=== PATIENT | male | born 1945 | race Caucasian/White ===

== ENCOUNTER 2022-04-24 17:16 | Observation (INO) | payer MEDICARE, SELFPAY ==
[2022-04-24] VITALS (14 sets, daily range): BP systolic 125–152; BP diastolic 75–98; PULSE 100–132; RESP 18–32; TEMP 36.6–38.4; O2SAT 92–96; BMI 35.6; BMI 38.4
--- NOTE | 2022-04-24 17:36 | EKG12_ITS ---
Test Reason : Blood Pressure : / mmHG Vent. Rate : 128 BPM Atrial Rate : 128 BPM P-R Int : 120 ms QRS Dur : 118 ms QT Int : 338 ms P-R-T Axes : 031 [id number] 011 degrees QTc Int : 493 ms Sinus tachycardia Low voltage QRS Right bundle branch block Inferior infarct , age undetermined Abnormal ECG Confirmed by YVETTE CASTRO, NOLAN ([id number]), offline editor TAMIKO HYATT ([id number]) on 04/26/2022 10:03:15 AM Referred By: LIYAH Confirmed By:NOLAN CRAWFORD MD
--- NOTE | 2022-04-24 17:49 | EDS_ITS ---
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 He started to feel short of breath overnight and then it became worse today while he was at a car show. He was walking to his car several times but not necessarily doing increased activity. He had no chest pain, nausea, or vomiting. No recent fever or cough. He denies cardiac history. He had a heart cath in August 2021 that reportedly showed 50% blockage in 1 vessel but was otherwise normal. He follows with pulmonology and wears 7 L chronically. He states he does not use inhalers or nebulizer as he does not need these. PFSH <NADEGE Santos Last Filed: 04/24/22 19:29> [facility] Medical History (Updated 04/24/22 @ 20:[address] Dar Villanueva, DO) Angina at rest Diabetes Hernia Idiopathic interstitial fibrosis of lung syndrome Allergy/AdvReac Type Severity Reaction Status Date / Time No Known Allergies Allergy Verified 04/24/22 17:17 Surgical History (Updated 04/24/22 @ 17:24 by Gage Lopez) History of back surgery Social History Smoking Status: Former smoker ROS <NADEGE Santos - Last Filed: 04/24/22 19:29> ROS ED ROS Narrative Constitutional: Negative for fever, chills, malaise. Eyes: Negative for visual change. ENT: Negative for sore throat, ear pain, rhinorrhea. CVS: Negative for palpitations, chest pain, syncope. Respiratory: Positive for shortness of breath. Negative for cough. GI: Negative for abdominal pain, nausea, vomiting, diarrhea, constipation, melena, hematochezia. : Negative for dysuria, hematuria or frequency. Neuro: Negative for headache, motor/sensory dysfunction. Skin: Negative for rash, abscess, or wound. Musc: Negative for joint pain, swelling, trauma. Heme: Negative for easy bruising, bleeding, lymphadenopathy. EXAM <NADEGE Santos Last Filed: 04/24/22 19:29> Physical Exam Narrative Exam Narrative: CONST: Patient sitting in no acute distress on nasal cannula. EYES: Normal inspection. NECK: Normal inspection. No JVD. RESP: Able to speak in full sentences with no respiratory distress, faint bibasilar inspiratory crackles. CVS: Regular rate and rhythm, no murmur, no gallop. ABD: Soft and nontender, no guarding or rebound, nondistended. SKIN: Color normal, no rash, warm, dry, intact. EXTREMITIES: Normal appearance, no pedal edema. NEURO: Oriented x4. PSYCH: Normal affect. Const Vital Signs: 04/24/22 17:17 04/24/22 17:21 04/24/22 17:21 Temperature 98.9 F 97.8 F Temperature Source Temporal Temporal Pulse Rate 127 H 126 H 127 H Respiratory Rate 20 H 24 H 21 H Respiratory Effort Respiratory Depth Respiratory Pattern Blood Pressure 152/98 H 152/98 H 152/98 H Blood Pressure Mean 116 116 116 Pulse Ox 95 96 96 Oxygen Delivery Method Non-Rebreather Non-Rebreather Non-Rebreather Oxygen Flow Rate (L/min) 15 15 04/24/22 17:25 04/24/22 18:17 04/24/22 18:17 Temperature 101.2 F H Temperature Source Oral Pulse Rate 131 H 132 H Respiratory Rate 30 H 30 H Respiratory Effort Short of Breath Respiratory Depth Shallow Respiratory Pattern Tachypnea Blood Pressure 130/79 H 130/79 H Blood Pressure Mean 96 96 Pulse Ox 95 95 Oxygen Delivery Method Nasal Cannula Nasal Cannula Nasal Cannula Oxygen Flow Rate (L/min) 7 7 04/24/22 19:00 04/24/22 20:00 Temperature 101.2 F H 99.1 F Temperature Source Temporal Temporal Pulse Rate 125 H 114 H Respiratory Rate 26 H 18 Respiratory Effort Respiratory Depth Respiratory Pattern Blood Pressure 145/78 H 140/75 H Blood Pressure Mean 100 96 Pulse Ox 92 93 Oxygen Delivery Method Nasal Cannula Nasal Cannula Oxygen Flow Rate (L/min) 7 7 <Dr. Dar Villanueva, DO - Last Filed: 04/24/22 20:24> Physical Exam Const Vital Signs: 04/24/22 17:17 04/24/22 17:21 04/24/22 17:21 Temperature 98.9 F 97.8 F Temperature Source Temporal Temporal Pulse Rate 127 H 126 H 127 H Respiratory Rate 20 H 24 H 21 H Respiratory Effort Respiratory Depth Respiratory Pattern Blood Pressure 152/98 H 152/98 H 152/98 H Blood Pressure Mean 116 116 116 Pulse Ox 95 96 96 Oxygen Delivery Method Non-Rebreather Non-Rebreather Non-Rebreather Oxygen Flow Rate (L/min) 15 15 04/24/22 17:25 04/24/22 18:17 04/24/22 18:17 Temperature 101.2 F H Temperature Source Oral Pulse Rate 131 H 132 H Respiratory Rate 30 H 30 H Respiratory Effort Short of Breath Respiratory Depth Shallow Respiratory Pattern Tachypnea Blood Pressure 130/79 H 130/79 H Blood Pressure Mean 96 96 Pulse Ox 95 95 Oxygen Delivery Method Nasal Cannula Nasal Cannula Nasal Cannula Oxygen Flow Rate (L/min) 7 7 04/24/22 19:00 04/24/22 20:00 Temperature 101.2 F H 99.1 F Temperature Source Temporal Temporal Pulse Rate 125 H 114 H Respiratory Rate 26 H 18 Respiratory Effort Respiratory Depth Respiratory Pattern Blood Pressure 145/78 H 140/75 H Blood Pressure Mean 100 96 Pulse Ox 92 93 Oxygen Delivery Method Nasal Cannula Nasal Cannula Oxygen Flow Rate (L/min) 7 7 [facility] <NADEGE Santos - Last Filed: 04/24/22 19:29> [facility] MDM Narrative Medical decision making narrative: Patient with pulmonary fibrosis on chronic 7L O2 presents with increased shortness of breath. He was brought in on nonrebreather however was placed back on 7 L and is satting around 95%. He is tachycardic in the 130s. He speaking in full sentences in no respiratory distress. Heart is rapid but regular. Lungs have bibasilar inspiratory crackles. There is no lower extremity edema. Labs show white count of 13.1, normal electrolytes, BUN/creatinine of 25/1.51, and BNP 61. There are no previous labs for comparison. EKG is sinus tachycardia with no acute ischemia and troponin is 10. COVID-19 antigen testing was negative. While here he did spike a fever at 101.2F cell he was treated with IV fluids, Tylenol, and blood cultures will be obtained. CXR shows no acute process. With unexplained fever and shortness of breath a PCR COVID-19 and CTA chest will be obtained. Lab Data Attestation: I reviewed the patient's lab results. Labs: Laboratory Results - last 24 hr 04/24/22 04/24/22 04/24/22 17:20 17:20 17:20 WBC 13.1 H RBC 4.24 L Hgb 13.5 Hct 41.4 MCV 97.6 H MCH 31.8 MCHC 32.6 RDW Std Deviation 48.1 H RDW Coeff of Remberto 13.2 Plt Count 263 MPV 9.5 Immature Gran % (Auto) 0.600 Neut % (Auto) 85.0 H Lymph % (Auto) 7.7 L Carson % (Auto) 4.9 Eos % (Auto) 1.5 Baso % (Auto) 0.3 Absolute Neuts (auto) 11.1 H Absolute Lymphs (auto) 1.01 Nucleated RBC % 0 Sodium 138 Potassium 4.5 Chloride 104 Carbon Dioxide 29.0 Anion Gap 5 BUN 25 H Creatinine 1.51 H Estim Creat Clear Calc 37.09 Est GFR (MDRD) Af Amer 58 L Est GFR (MDRD) Non-Af 48 L BUN/Creatinine Ratio 16.6 Glucose 212 H Calcium 9.6 Troponin I High Sens 10 B-Natriuretic Peptide 61.3 Radiography Diagnostic Testing: Clinical Impression(s) from Imaging Studies Chest X-Ray 04/24/22 17:50 IMPRESSION: Poor inspiration with some bibasilar atelectasis per Electronically Signed: Luis Babin MD at 18:27 EDT Reading Location ID and State: [id number] / [employer] , Service support , Chest CTA 04/24/22 18:45 IMPRESSION: Normal CTA chest examination, without a demonstrated pulmonary embolism or arterial dissection. Electronically Signed: Luis Babin MD at 19:51 EDT Reading Location ID and State: [id number] / [employer] , Service support , EKG Initial EKG: Attestation: I personally reviewed and interpreted this EKG as follows: Interpretation: No Acute Injury Pattern and Sinus Tachycardia Comments: Sinus tachycardia at 128 bpm, RBBB, normal intervals, no acute ischemia <Dr. Dar Villanueva, DO - Last Filed: 04/24/22 20:24> MDM MDM Narrative Medical decision making narrative: Patient with pulmonary fibrosis on chronic 7L O2 presents with increased shortness of breath. He was brought in on nonrebreather however was placed back on 7 L and is satting around 95%. He is tachycardic in the 130s. He speaking in full sentences in no respiratory distress. Heart is rapid but regular. Lungs have bibasilar inspiratory crackles. There is no lower extremity edema. Labs show white count of 13.1, normal electrolytes, BUN/creatinine of 25/1.51, and BNP 61. There are no previous labs for comparison. EKG is sinus tachycardia with no acute ischemia and troponin is 10. COVID-19 antigen testing was negative. While here he did spike a fever at 101.2F cell he was treated with IV fluids, Tylenol, and blood cultures will be obtained. CXR shows no acute process. With unexplained fever and shortness of breath a PCR COVID-19 and CTA chest will be obtained. CTA was obtained and is negative for infiltrate and negative for pulmonary embolism. Patient fever has been reduced but he remains tachypneic and tachycardic. Administered Solu-Medrol. He states that he does not feel well enough to drive back home which is in [facility]. I will speak with our hospitalist regarding admission. I performed a history and physical examination of the patient and discussed management plan with the physician temporary administrative assistant. I reviewed the physician temporary administrative assistant's note and agree with the documented findings and plan of care. Dar Villanueva DO, MS Lab Data Labs: Laboratory Results - last 24 hr 04/24/22 04/24/22 04/24/22 17:20 17:20 17:20 WBC 13.1 H RBC 4.24 L Hgb 13.5 Hct 41.4 MCV 97.6 H MCH 31.8 MCHC 32.6 RDW Std Deviation 48.1 H RDW Coeff of Remberto 13.2 Plt Count 263 MPV 9.5 Immature Gran % (Auto) 0.600 Neut % (Auto) 85.0 H Lymph % (Auto) 7.7 L Carson % (Auto) 4.9 Eos % (Auto) 1.5 Baso % (Auto) 0.3 Absolute Neuts (auto) 11.1 H Absolute Lymphs (auto) 1.01 Nucleated RBC % 0 Sodium 138 Potassium 4.5 Chloride 104 Carbon Dioxide 29.0 Anion Gap 5 BUN 25 H Creatinine 1.51 H Estim Creat Clear Calc 37.09 Est GFR (MDRD) Af Amer 58 L Est GFR (MDRD) Non-Af 48 L BUN/Creatinine Ratio 16.6 Glucose 212 H Calcium 9.6 Troponin I High Sens 10 B-Natriuretic Peptide 61.3 Radiography Diagnostic Testing: Clinical Impression(s) from Imaging Studies Chest X-Ray 04/24/22 17:50 IMPRESSION: Poor inspiration with some bibasilar atelectasis per Electronically Signed: Luis Babin MD at 18:27 EDT Reading Location ID and State: [employer] / [employer] , Service support , Chest CTA 04/24/22 18:45 IMPRESSION: Normal CTA chest examination, without a demonstrated pulmonary embolism or arterial dissection. Electronically Signed: Luis Babin MD at 19:51 EDT Reading Location ID and State: [id number] / [employer] , Service support , Discharge Plan Dx/Rx/DC Orders Clinical Impression: Idiopathic pulmonary fibrosis, Acute dyspnea, Acute febrile illness Disposition Disposition: Acute Care [facility]
[2022-04-24 17:50] LABS: Absolute Lymphocyte Count 1.01 X10^3/uL (0.83-4.51); Absolute Neutrophil Count 11.1 X10^3/uL (2.0-7.7); Basophil# 0.04 X10^3/uL; Basophil% 0.3 % (0-1); Eosinophil# 0.19 X10^3/uL; Eosinophils% 1.5 % (0-5); Hematocrit 41.4 % (40-54); Hemoglobin 13.5 g/dL (13.0-16.5); Lymphocyte # 1.01 X10^3/ul (0.83-4.51); Lymphocyte % 7.7 % (19-41); Mean Corp Hgb Conc 32.6 g/dL (32-36); Mean Corpuscular Hgb 31.8 pg (27.0-32.0); Mean Corpuscular Volume 97.6 fL (80-94); Mean Platelet Vol. 9.5 fl (6.2-12.0); Monocyte# 0.64 X10^3/uL; Monocyte% 4.9 % (0-10); NRBC Flagged by Analyzer 0 % (0-5); Neutrophil # 11.12 X10^3/uL (2.7-7.7); Platelet Count 263 K/mm3 (150-450); RBC Distribution Width CV 13.2 % (11.6-14.6); RBC Distribution Width SD 48.1 fl (35.1-43.9); Red Blood Count 4.24 M/mm3 (4.6-6.2); White Blood Count 13.1 K/mm3 (4.4-11.0)
--- NOTE | 2022-04-24 17:50 | RAD_ITS ---
STUDY: X-RAY CHEST REASON FOR EXAM: Male, 77 years old. dyspnea TECHNIQUE: Single AP portable view of the chest. COMPARISON: None. FINDINGS: Poor inspiration with some bibasilar atelectasis. There is no demonstrated pleural abnormality. There is moderate cardiac enlargement. Normal mediastinum and oracio. Normal visualized pulmonary arteries. Normal visualized aortic arch and descending thoracic aorta. Normal visualized thoracic spine. Normal visualized ribs, clavicles, and shoulders. There is no demonstrated abnormality of the visualized soft tissue structures of the upper abdomen. RAD/Chest 1 View (Portable) IMPRESSION: Poor inspiration with some bibasilar atelectasis per Electronically Signed: Luis Babin MD at 18:27 EDT ,
[2022-04-24 18:21] LABS: Anion Gap 5 (5-15); BUN 25 mg/dL (7-18); BUN/Creat Ratio 16.6 RATIO (10-20); Calcium,Total 9.6 mg/dL (8.5-10.1); Chloride 104 mmol/L (98-107); Creatinine, Serum 1.51 mg/dL (0.70-1.30); EST Glomerular Filtration Rate 48 mL/min (>60); Est Glom Filt Rate - Afr Amer 58 mL/min (>60); Estimated Creatinine Clearance 37.09 ml/min; Glucose 212 mg/dL (74-106); Potassium 4.5 mmol/L (3.5-5.1); Sodium Level 138 mmol/L (136-145); Troponin-I HS 10 pg/mL (3.0-78.0)
[2022-04-24 18:22] LABS: BNP,B-Type NATRIURETIC PEPTIDE 61.3 pg/mL (0-100)
[2022-04-24] MEDS: 0.9% Normal Saline 1,000 ML 999 ML IV (18:44)
[2022-04-24] MEDS: Acetaminophen 500 MG Tablet 1000 MG PO (18:45)
--- NOTE | 2022-04-24 18:45 | CT_ITS ---
STUDY: CTA CHEST REASON FOR EXAM: Male, 77 years old. dyspnea, rule out PE RADIATION DOSAGE (If Supplied By Facility): CTDIvol = ( 22.17 ) mGy, DLP = ( 615.74 ) mGycm TECHNIQUE: The examination was performed with the intravenous administration of IV 100mL Isovue-370. Post-processing of the angiographic images was performed, with multiplanar reformation and 3D reconstruction. Individualized dose optimization techniques were used for this CT. COMPARISON: Chest x-ray earlier today FINDINGS: Normal enhancement of the main pulmonary artery and right and left pulmonary arteries. Normal enhancement of the bilateral peripheral pulmonary arteries. There is no demonstrated pulmonary embolism. There is atherosclerotic calcification of the aortic arch with tortuosity. There is no demonstrated aortic dissection. Normal heart and pericardium. Some prominent mediastinal lymph nodes which are likely reactive. Normal hilar regions. Normal visualized trachea and bronchi. The lungs are well expanded. Thickening of the interlobular septa within the periphery of the lungs consistent with interstitial lung disease likely idiopathic pulmonary fibrosis. Few areas of honeycombing. Normal pleura. Normal chest wall structures. Normal osseous structures. Normal visualized upper abdomen. CT/CTA Chest W/WO Contrast IMPRESSION: Normal CTA chest examination, without a demonstrated pulmonary embolism or arterial dissection. Electronically Signed: Luis Babin MD at 19:51 EDT ,
[2022-04-24] MEDS: MethylPREDNISolone 125 MG/2 ML Vial IV (20:28)
[2022-04-24 20:43] LABS: Bacteria 0 SEEN /hpf (None Seen); Mucous, Urine 0 SEEN /hpf (<or=2+); Red Blood Cells-Urine 0 SEEN /hpf (0-5); Squamous Epithelial Cells - UA 0 SEEN /hpf (0-5); White Blood Cells 0 SEEN /hpf (0-5)
[2022-04-24 20:45] LABS: Color, Urine Yellow (Yellow); Glucose, Dipstick Normal (Normal); Ketone-Dipstick Negative (Negative); Leukocyte Esterase-Dipstick Negative /ul (Negative); Nitrite-Dipstick Negative (Negative); Occult Blood-Urine Negative /ul (Negative); Protein-Dipstick Negative (Negative); Specific Gravity, Urine 1.015 (1.002-1.030); Urine Bilirubin Dipstick Negative (Negative); Urine Clarity Clear (Clear); Urine Urobilinogen Normal (Normal)
[2022-04-24] MEDS: Ipratropium/Albuterol Sulfate 3 ML AMPUL.NEB INHALATION ×2 (20:49→23:35)
[2022-04-24 21:17] LABS: Probe Check PASS; Specimen Processing Control PASS
--- NOTE | 2022-04-24 21:48 | PCM.HP.STD ---
HPI - General General Date of Admission: 04/24/22 Date of Service: 04/24/22 Chief Complaint: Increased shortness of breath, dyspnea at rest and fever today HPI Narrative CHUCK HERNANDEZ, is a 77 M with recent diagnosis of IPF as per patient's clinical assessment manager in [place] in November 2021 came to ED for increased shortness of breath, dyspnea, turning blue as per the . Patient is chronically on 7 L of oxygen on baseline. He came to [place] for a culture today patient felt very short of breath while doing normal activity, walking to his car. As per EMS note, patient was tachycardic, heart rate 127/min, found hypoxic on 6 L put on 100% nonrebreather and brought to [facility] ED. In ED, patient does not have chest pain tightness or pressure. No cough. Found to have fever temperature 101.2 ?F twice. ER physician discussed with clinical assessment manager decided to admit. Patient had a heart cath in 2020 which showed 50% blockage in 1 vessel. Patient states he is 40 years of working in [employer]. He also has a history of chronic smoking in the past. Started as teenager and quit in 2010 after he had double pneumonia. Patient follows clinical assessment manager Dr. Briggs in [place]. Chest x-ray and CTA reviewed individually. CT did not show PE but chronic honeycombing changes, thickening of interlobular septal mainly in periphery and basal area consistent with IPF. Twelve-lead EKG shows sinus tachycardia at 128 beats minute, RBBB, low voltage QRS, QTC 493 ms. Patient is further admitted. Labs discussed in assessment and plan [facility] Medical History Angina at rest Diabetes Hernia Idiopathic interstitial fibrosis of lung syndrome Home Medications aspirin 81 mg tablet,delayed release 81 mg PO DAILY 04/24/22 [History Last Taken Unknown] carvedilol 3.125 mg tablet 3.125 mg PO DAILY 04/24/22 [History Last Taken Unknown] furosemide 20 mg tablet 20 mg PO DAILY 04/24/22 [History Last Taken Unknown] levothyroxine 150 mcg tablet 150 mcg PO DAILY 04/24/22 [History Last Taken Unknown] nitroglycerin 0.4 mg sublingual tablet 0.4 mg sublingual PRN PRN Angina 04/24/22 [History Last Taken Unknown] rosuvastatin 20 mg tablet 20 mg PO DAILY 04/24/22 [History Last Taken Unknown] Allergy/AdvReac Type Severity Reaction Status Date / Time No Known Allergies Allergy Verified 04/24/22 17:17 Surgical History History of back surgery Social History Smoking Status: Former smoker ROS ROS Narrative Constitutional: Reports fatigue and weakness during exertion. Fever. Obese HEENT: Deep oropharyngeal structures not visualized reports systems reviewed and no addt'l complaints, except as documented Respiratory/Chest: Denies chest pain. Rest as described in HPI Gastrointestinal: Denies coffee ground emesis, hematemesis or vomiting Genitourinary: Denies burning urination or new urinary tract symptoms Musculoskeletal: Denies joint pain or limited range of motion. Neurologic: Denies seizure-like activity. No focal weakness. skin: No ulcer. No rash Endocrinology: Reports systems reviewed and no addt'l complaints, except as documented Hematologic/Lymphatic: Reports systems reviewed and no addt'l complaints, except as documented Rest 14 ROS are negative except as mentioned in HPI Vital Signs Vital Signs Vital Signs: 04/24/22 17:17 04/24/22 17:21 04/24/22 17:21 Temperature 98.9 F 97.8 F Temperature Source Temporal Temporal Pulse Rate 127 H 126 H 127 H Respiratory Rate 20 H 24 H 21 H Respiratory Effort Respiratory Depth Respiratory Pattern Blood Pressure 152/98 H 152/98 H 152/98 H Blood Pressure Mean 116 116 116 Pulse Ox 95 96 96 Oxygen Delivery Method Non-Rebreather Non-Rebreather Non-Rebreather Oxygen Flow Rate (L/min) 15 15 04/24/22 17:25 04/24/22 18:17 04/24/22 18:17 Temperature 101.2 F H Temperature Source Oral Pulse Rate 131 H 132 H Respiratory Rate 30 H 30 H Respiratory Effort Short of Breath Respiratory Depth Shallow Respiratory Pattern Tachypnea Blood Pressure 130/79 H 130/79 H Blood Pressure Mean 96 96 Pulse Ox 95 95 Oxygen Delivery Method Nasal Cannula Nasal Cannula Nasal Cannula Oxygen Flow Rate (L/min) 7 7 04/24/22 19:00 04/24/22 20:00 04/24/22 20:52 Temperature 101.2 F H 99.1 F 99.1 F Temperature Source Temporal Temporal Temporal Pulse Rate 125 H 114 H 113 H Respiratory Rate 26 H 18 30 H Respiratory Effort Respiratory Depth Respiratory Pattern Blood Pressure 145/78 H 140/75 H 145/78 H Blood Pressure Mean 100 96 100 Pulse Ox 92 93 93 Oxygen Delivery Method Nasal Cannula Nasal Cannula Nasal Cannula Oxygen Flow Rate (L/min) 7 7 7 04/24/22 21:00 04/24/22 20:49 04/24/22 20:49 Temperature 99.2 F H Temperature Source Oral Pulse Rate 110 H 109 H Respiratory Rate 21 H 32 H 32 H Respiratory Effort Short of Breath Respiratory Depth Shallow Respiratory Pattern Tachypnea Tachypnea Blood Pressure 125/78 H Blood Pressure Mean 93 Pulse Ox 93 93 Oxygen Delivery Method Nasal Cannula Nasal Cannula Oxygen Flow Rate (L/min) 3 6 Weight Weight: 228 lb Body Mass Index (BMI) 35.6 Results Lab / Micro Data Result Diagrams: 04/24/22 17:20 04/24/22 17:20 Labs: Laboratory Results - last 24 hr 04/24/22 17:20: WBC 13.1 H, RBC 4.24 L, Hgb 13.5, Hct 41.4, MCV 97.6 H, MCH 31.8, MCHC 32.6, RDW Std Deviation 48.1 H, RDW Coeff of Remberto 13.2, Plt Count 263, MPV 9.5, Immature Gran % (Auto) 0.600, Neut % (Auto) 85.0 H, Lymph % (Auto) 7.7 L, [place] % (Auto) 4.9, Eos % (Auto) 1.5, Baso % (Auto) 0.3, Absolute Neuts (auto) 11.1 H, Absolute Lymphs (auto) 1.01, Nucleated RBC % 0 04/24/22 17:20: Sodium 138, Potassium 4.5, Chloride 104, Carbon Dioxide 29.0, Anion Gap 5, BUN 25 H, Creatinine 1.51 H, Estim Creat Clear Calc 37.09, Est GFR (MDRD) Af Amer 58 L, Est GFR (MDRD) Non-Af 48 L, BUN/Creatinine Ratio 16.6, Glucose 212 H, Calcium 9.6, Troponin I High Sens 10 04/24/22 17:20: B-Natriuretic Peptide 61.3 04/24/22 18:57: COVID-19 (MARZENA) Negative 04/24/22 20:38: Urine Color Yellow, Urine Clarity Clear, Urine pH 6.0, Ur Specific [place] 1.015, Urine Protein Negative, Urine Glucose (UA) Normal, Urine Ketones Negative, Urine Occult Blood Negative, Urine Nitrite Negative, Urine Bilirubin Negative, Urine Urobilinogen Normal, Ur Leukocyte Esterase Negative, Urine RBC 0 SEEN, Urine WBC 0 SEEN, Ur Squamous Epith Cells 0 SEEN, Urine Bacteria 0 SEEN, Urine Mucus 0 SEEN Micro: Microbiology 04/24/22 17:45 Nasal Secretion SARS-CoV-2 Antigen (Rapid) - Final Radiology Impression Chest X-Ray 04/24/22 17:50 IMPRESSION: Poor inspiration with some bibasilar atelectasis per Electronically Signed: Luis Babin MD at 18:27 EDT Reading Location ID and State: [employer] / [employer] Tel , Service support , Chest CTA 04/24/22 18:45 IMPRESSION: Normal CTA chest examination, without a demonstrated pulmonary embolism or arterial dissection. Electronically Signed: Luis Babin MD at 19:51 EDT Reading Location ID and State: [employer] / [employer] Tel , Service support , Assessment & Plan Assessment/Plan (1) Acute dyspnea: (2) Idiopathic pulmonary fibrosis: PLAN: Plan This is 77-year-old male with history of recent diagnosis of IPF being admitted for acute dyspnea and acute febrile illness. 1. Acute dyspnea and fever with history of chronic IPF, suspect URI/acute bronchitis: Patient is being admitted in PCU. He is back on 7 L of oxygen. CTA to did not show features of acute pneumonia/consolidation. Patient had total of 4 doses of COVID-vaccine. Denies any recent sick contact. UA is negative for pyuria. No dysuria. No abdominal pain nausea or vomiting. Exact focus of infection unclear but suspect possible viral URI. COVID-19 PCR, urinary antigens and respiratory panel ordered. Blood cultures x2 ordered by ER physician. Started empirically on IV Rocephin and Zithromax. BNP normal. College Professor consulted. 2. BUN/creatinine abnormal: Patient BUN/creatinine is 25/1.51. No previous lab. Patient denies a diagnosis of chronic kidney disease, unclear acute or chronic. IV fluid normal saline 100 mL 4 mL ordered. Monitor kidney function tomorrow. 3. Diabetes mellitus type 2: Patient states his A1c is between 6 to 7%. Glucose 212 in BMP. Accu-Cheks images cover with Humalog sliding scale. VT prophylaxis: Heparin 5000 subcutaneous twice daily. Total time of the visit including total time spent in counseling or coordination of care, (more than 50% of the total time, spent in obtaining medical information from nurses and other ancillary care providers,explaining to the patient about labs, imaging, diagnosis and management of active complex medical conditions), , review of labs and imaging is 40 minutes. Living will/advanced directive/end of life care: Patient does have living will or advanced directive. His is power of health care attorney for health. After discussion of benefits/risks procedures involved with full code, DNR CC arrest and DNR CC, the patient and is stating that he is full code. I tried to educate that patient of her diagnosis of IPF is not a candidate for invasive, intubation and ventilator treatment as prognosis is poor and is often futile. I advised further talk to his clinical assessment manager. Patient does want artificial life support including intubation, tube feed, ventilator and/chest compression, central venous catheter, vasopressor and DC shock if needed Total time spent in [id number] encounter in discussion of advanced directive 16 minutes. Charges/Coding Visit Charges OBSV E&M: 15372 Initial observation care L3 Procedures Hospitalists Procedures: 94545 Advncd Care Plan 30 Min
[2022-04-24] MEDS: guaiFENesin 1,200 MG Tablet 1200 MG PO (22:59)
[2022-04-24] MEDS: Heparin Injection (Vial) 5,000 UNIT/ML VIAL 5000 UNIT SC (22:59)
[2022-04-25] VITALS (8 sets, daily range): BP systolic 145–148; BP diastolic 95–99; PULSE 100–110; RESP 18–24; TEMP 36.3–36.5; O2SAT 93–98
[2022-04-25 01:59] LABS: M R Staph aureus DNA By PCR Negative (Negative); Probe Check PASS; Specimen Processing Control PASS
[2022-04-25] MEDS: Ipratropium/Albuterol Sulfate 3 ML AMPUL.NEB INHALATION ×3 (03:34→11:07)
[2022-04-25] MEDS: Levothyroxine 150 MCG Tablet PO (05:47)
--- NOTE | 2022-04-25 06:03 | EX.PCM.CONCC ---
Assessment & Plan Assessment/Plan (1) Idiopathic pulmonary fibrosis: PLAN: Plan RECOMMENDATIONS: 1. Wean supplemental oxygen as tolerated. Saturations of 88 to 92% are appropriate. 2. Bronchodilators as needed. 3. Discharge with azithromycin to complete treatment course. 4. Outpatient follow-up with his pulmonary provider at the end of the month. IMPRESSIONS: 1. Acute on chronic hypoxemic respiratory failure in the setting of idiopathic pulmonary fibrosis The patient has known IPF, initially diagnosed in the spring. He is currently followed by an outside calender supervisor through the [facility]. The patient has a baseline oxygen requirement of 7 L/min. However, his portable oxygen concentrator only goes up to 6 L/min of pulsed dose delivery. I do suspect that yesterday he likely became progressively hypoxemic as his demand outpaced his oxygen delivery through his portable oxygen concentrator. Although he did have a transient fever noted in the emergency department, no focal infiltrate was identified on chest imaging. There is no evidence of pulmonary embolism. The patient has background radiographic findings concerning for IPF. At this time, I do not see any indication for any additional work-up. The patient appears to be at his baseline from a respiratory perspective. It would be reasonable to send him home with a course of azithromycin. Ultimately, the patient is already scheduled to follow-up with his pulmonary provider at the end of the month. He is actively engaged in pulmonary rehab. 2. Obesity/hypertension/hypothyroidism/hyperlipidemia Complicates care, management, recovery and prognosis. Continue home medications as indicated. This note was generated with [employer] dictation software. It may contain incorrect words, spelling, and punctuation that were not noted in checking the note before signing. HPI Consult Data Date of Consult: 04/25/22 HPI Narrative Reason for Consultation: Chronic hypoxemic respiratory failure HPI Narrative: The patient is a 77-year-old male, with a history as outlined below, who presented to the emergency department via EMS on April 24 with shortness of breath and hypoxemia. The patient has known history of idiopathic pulmonary fibrosis and is followed by an outside calender supervisor through [facility]. The patient reported that he was initially diagnosed with IPF in the spring 2021. He does have a prior tobacco abuse history, but stated that he has never been diagnosed with COPD. At his baseline, he utilizes 7 L/min of oxygen. However, he did admit that when he is out in public, he utilizes a portable oxygen concentrator which only goes up to 6 L/min of pulsed dose delivery. The patient was apparently at a local car show yesterday when he became hypoxic and short of breath. He is not currently on any medical therapy for his IPF. On presentation to the emergency department, the patient was noted to be afebrile and hemodynamically stable. He was, nevertheless noted to be tachycardic and tachypneic. He was saturating in the mid 90s on a nonrebreather. Initial laboratory evaluation revealed a white blood cell count of 13,000. Chemistry profile was notable for a creatinine of 1.5. BNP and troponin were within normal limits. Urine analysis was unremarkable. COVID and MRSA screens were negative. Respiratory viral panel was negative. Strep and urine Legionella antigens were negative. CTA chest showed no evidence for pulmonary embolism. A background of interstitial disease was noted with traction bronchiectasis and basilar predominant subpleural honeycomb formation. The patient was started on antibiotics and bronchodilators. He was admitted to the hospital for further management. [facility] Medical History (Updated 04/24/22 @ 22:27 by Megan Vincent) Angina at rest Diabetes Former smoker Hernia Hypothyroidism Idiopathic interstitial fibrosis of lung syndrome On home oxygen therapy Home Medications aspirin 81 mg tablet,delayed release 81 mg PO DAILY 04/24/22 [History Last Taken Unknown] carvedilol 3.125 mg tablet 3.125 mg PO DAILY 04/24/22 [History Last Taken Unknown] furosemide 20 mg tablet 20 mg PO DAILY 04/24/22 [History Last Taken Unknown] levothyroxine 150 mcg tablet 150 mcg PO DAILY 04/24/22 [History Last Taken Unknown] nitroglycerin 0.4 mg sublingual tablet 0.4 mg sublingual PRN PRN Angina 04/24/22 [History Last Taken Unknown] rosuvastatin 20 mg tablet 20 mg PO DAILY 04/24/22 [History Last Taken Unknown] Allergy/AdvReac Type Severity Reaction Status Date / Time No Known Allergies Allergy Verified 04/24/22 17:17 Surgical History History of back surgery Social History Smoking Status: Former smoker ROS Constitutional Constitutional: Reports malaise and weakness Eyes Eyes: Denies blurry vision or change in vision ENT HEENT: Denies dizziness, dysphagia, epistaxis or headache(s) Cardiovascular Cardiovascular: Reports dyspnea Respiratory/Chest Respiratory/Chest: Reports dyspnea Gastrointestinal Gastrointestinal: Denies abdominal pain, diarrhea, nausea or vomiting Genitourinary Genitourinary: Denies difficulty urinating Musculoskeletal Musculoskeletal: Denies arthralgias, back pain or joint pain Integumentary Integumentary: Denies lesions, rash or skin ulcer Neurologic Neurologic: Denies abnormal gait or abnormal speech Psychiatric Psychiatric: Denies anxiety Endocrine Endocrinology: Denies fatigue Hematologic/Lymphatic Hematologic/Lymphatic: Denies easy bleeding or easy bruising Physical Exam Const alert, oriented x3 and no apparent distress General Appearance: cooperative Nutritional Appearance: obese HEENT normocephalic, head/scalp atraumatic and moist oral mucous membranes Eyes PERRL, EOMs intact bilaterally and conjunctivae normal Neck supple General: trachea midline Chest inspection of chest normal Resp normal respiratory effort Resp Narrative: Bibasilar crackles present. Cardio regular rate and regular rhythm GI normal to inspection, nondistended, normoactive bowel sounds Extremity no clubbing, cyanosis or edema Skin no rashes or lesions noted Neuro oriented x3, CN's II-XII intact bilaterally and moves all extremities Psych cooperative and affect normal Lab / Micro Data Result Diagrams: 04/25/22 06:25 04/25/22 06:25 Labs: Laboratory Results - last 24 hr 04/24/22 17:20: WBC 13.1 H, RBC 4.24 L, Hgb 13.5, Hct 41.4, MCV 97.6 H, MCH 31.8, MCHC 32.6, RDW Std Deviation 48.1 H, RDW Coeff of Remberto 13.2, Plt Count 263, MPV 9.5, Immature Gran % (Auto) 0.600, Neut % (Auto) 85.0 H, Lymph % (Auto) 7.7 L, [place] % (Auto) 4.9, Eos % (Auto) 1.5, Baso % (Auto) 0.3, Absolute Neuts (auto) 11.1 H, Absolute Lymphs (auto) 1.01, Nucleated RBC % 0 04/24/22 17:20: Sodium 138, Potassium 4.5, Chloride 104, Carbon Dioxide 29.0, Anion Gap 5, BUN 25 H, Creatinine 1.51 H, Estim Creat Clear Calc 37.09, Est GFR (MDRD) Af Amer 58 L, Est GFR (MDRD) Non-Af 48 L, BUN/Creatinine Ratio 16.6, Glucose 212 H, Calcium 9.6, Troponin I High Sens 10 04/24/22 17:20: B-Natriuretic Peptide 61.3 04/24/22 18:57: COVID-19 (MARZENA) Negative 04/24/22 20:38: Urine Color Yellow, Urine Clarity Clear, Urine pH 6.0, Ur Specific [place] 1.015, Urine Protein Negative, Urine Glucose (UA) Normal, Urine Ketones Negative, Urine Occult Blood Negative, Urine Nitrite Negative, Urine Bilirubin Negative, Urine Urobilinogen Normal, Ur Leukocyte Esterase Negative, Urine RBC 0 SEEN, Urine WBC 0 SEEN, Ur Squamous Epith Cells 0 SEEN, Urine Bacteria 0 SEEN, Urine Mucus 0 SEEN 04/24/22 23:10: MRSA (PCR) Negative Micro: Microbiology 04/24/22 18:57 Mucosa - Nose Respiratory Panel (PCR) - Final 04/24/22 20:38 Urine, Clean Catch Legionella Antigen - Final 04/24/22 20:38 Urine, Clean Catch Streptococcus pneumoniae Antigen (M - Final 04/24/22 17:45 Nasal Secretion SARS-CoV-2 Antigen (Rapid) - Final Radiology Impression Chest X-Ray 04/24/22 17:50 IMPRESSION: Poor inspiration with some bibasilar atelectasis per Electronically Signed: Luis Babin MD at 18:27 EDT Reading Location ID and State: [id number] / [employer] Tel , Service support , Chest CTA 04/24/22 18:45 IMPRESSION: Normal CTA chest examination, without a demonstrated pulmonary embolism or arterial dissection. Electronically Signed: Luis Babin MD at 19:51 EDT , Charges/Coding Visit Charges Inpatient E&M: 00248 Init Hosp L3
[2022-04-25 06:51] LABS: Absolute Lymphocyte Count 0.59 X10^3/uL (0.83-4.51); Absolute Neutrophil Count 8.6 X10^3/uL (2.0-7.7); Basophil# 0.01 X10^3/uL; Basophil% 0.1 % (0-1); Differential Indicated SCAN CRITERIA MET; Hematocrit 39.3 % (40-54); Hemoglobin 13.4 g/dL (13.0-16.5); Lymphocyte # 0.59 X10^3/ul (0.83-4.51); Lymphocyte % 6.3 % (19-41); Mean Corp Hgb Conc 34.1 g/dL (32-36); Mean Corpuscular Hgb 33.2 pg (27.0-32.0); Mean Corpuscular Volume 97.3 fL (80-94); Mean Platelet Vol. 9.4 fl (6.2-12.0); Monocyte# 0.06 X10^3/uL; Monocyte% 0.6 % (0-10); NRBC Flagged by Analyzer 0 % (0-5); Neutrophil # 8.58 X10^3/uL (2.7-7.7); Neutrophil % 92.2 % (47-70); POSITIVE DIFFERENTIAL YES; Platelet Count 232 K/mm3 (150-450); RBC Distribution Width CV 13.4 % (11.6-14.6); RBC Distribution Width SD 48.5 fl (35.1-43.9); Red Blood Count 4.04 M/mm3 (4.6-6.2); White Blood Count 9.3 K/mm3 (4.4-11.0)
[2022-04-25 07:06] LABS: Differential Comment SCANNED
[2022-04-25 07:10] LABS: Anion Gap 7 (5-15); BUN 23 mg/dL (7-18); BUN/Creat Ratio 19.3 RATIO (10-20); Calcium,Total 9.3 mg/dL (8.5-10.1); Chloride 106 mmol/L (98-107); Creatinine, Serum 1.19 mg/dL (0.70-1.30); EST Glomerular Filtration Rate 63 mL/min (>60); Est Glom Filt Rate - Afr Amer 76 mL/min (>60); Estimated Creatinine Clearance 45.42 ml/min; Glucose 396 mg/dL (74-106); Potassium 4.2 mmol/L (3.5-5.1); Sodium Level 136 mmol/L (136-145)
[2022-04-25] MEDS: Aspirin E.C. 81 MG Tablet PO (09:54)
[2022-04-25] MEDS: guaiFENesin 1,200 MG Tablet 1200 MG PO (09:54)
[2022-04-25] MEDS: Carvedilol 3.125 MG TABLET PO (09:54)
[2022-04-25] MEDS: Heparin Injection (Vial) 5,000 UNIT/ML VIAL 5000 UNIT SC (09:55)
--- NOTE | 2022-04-25 10:31 | DCINST_ITS ---
Discharge Instructions Diet Discharge Diet: Low fat / Low cholesterol Activity Discharge Activity: Return to Normal Activity Weight Bearing Status: Weight bearing as tolerated Dressing / Incision Call your doctor if you observe: Fever of 101 or Higher, Shortness of breath, Dizziness and Chest pain Follow Up Care Test Results: Test results from this visit will be discussed in further detail at your follow- up appointment, if applicable. Discharge Plan Admission Admit Date/Time: 04/24/22 21:41 Primary Reason for Your Visit: exacerbation of IPF with hypoxia Attending Provider: Bella Loja Primary Care Provider: Huseyin Fuller Consulting Providers: Ervin Palacios ; Jose Puente ; Freya Dey NP ; Amor Hardy Instructions Patient Instructions: Pulmonary Fibrosis Additional Instructions / Restrictions: follow up with your strategy planning consultant in [place] as scheduled. Use oxygen 7L for shortness of breath. Discharge Orders/Prescriptions Prescriptions: New azithromycin 500 mg tablet 500 mg PO DAILY 5 Days Qty: 5 0RF Continued aspirin 81 mg tablet,delayed release (DR/EC) 81 mg PO DAILY Label Comments: TAKE 1 TABLET BY MOUTH EVERY DAY carvedilol 3.125 mg tablet 3.125 mg PO DAILY Label Comments: TAKE 1 TABLET BY MOUTH TWICE DAILY WITH FOOD levothyroxine 150 mcg tablet 150 mcg PO DAILY Label Comments: TAKE 1 TABLET BY MOUTH DAILY nitroglycerin 0.4 mg tablet, sublingual 0.4 mg sublingual PRN PRN (Reason: Angina) Label Comments: PUT ONE TABLET BY MOUTH UNDER TONGUE NEEDED FOR CHEST PAIN furosemide 20 mg tablet 20 mg PO DAILY Label Comments: TAKE 1 TABLET BY MOUTH EVERY DAY rosuvastatin 20 mg tablet 20 mg PO DAILY Label Comments: TAKE 1 TABLET BY MOUTH EVERY DAY Referrals / Follow Up: Huseyin Fuller [Other] - Within 1 Week Huseyin Fuller [Other] Disposition Disposition (needs filled in before D/C Order can be placed): Home, Self Care
--- NOTE | 2022-04-25 10:37 | DS.PCM_ITS ---
Providers Date of Admission: 04/24/22 Date of Discharge: 04/25/22 Primary Care Physician: Huseyin Fuller Consultations 04/24/22 22:19 Consult: Assistant Director Of Security / Pulmonary Medicine Routine Consulting Provider: [facility] [place] Reason for Consult: IPF with dyspnea and hypoxia, fever EMERGENT Consult: No MD Notified: Yes Date Notified: 04/24/22 Time Notified: 21:45 Method of Notification: ED Physician Initiated Reason For Visit: IDIOPATHIC PULMONARY FIBROSIS ACUTE FEBRILE ILLNES Diagnosis Discharge Diagnosis (1) Idiopathic pulmonary fibrosis: Status: Acute Code(s): J84.112 - Idiopathic pulmonary fibrosis (2) Acute dyspnea: Status: Acute Code(s): R06.00 - Dyspnea, unspecified Medications at Discharge Home Medications aspirin 81 mg tablet,delayed release 81 mg PO DAILY 04/24/22 carvedilol 3.125 mg tablet 3.125 mg PO DAILY 04/24/22 furosemide 20 mg tablet 20 mg PO DAILY 04/24/22 levothyroxine 150 mcg tablet 150 mcg PO DAILY 04/24/22 nitroglycerin 0.4 mg sublingual tablet 0.4 mg sublingual PRN PRN Angina 04/24/22 rosuvastatin 20 mg tablet 20 mg PO DAILY 04/24/22 azithromycin 500 mg tablet 500 mg PO DAILY 5 days #5 tabs 04/25/22 Hospital Course Operations None Procedures None Summary of Care Provided Minutes Spent on Discharge: 45 Hospital Course: Patient is a 77 y/o male with a PMH as outlined, including a recent diagnosis of idiopathic pulmonary fibrosis who follows with his java grails developer in the system in [place]. He was admitted with a complaint of wornseing shortness of breath and noticing he was turning blue. He wore 7L of oxgyen at home, but had travelled to [place] with his oxygen concentrator which delivered a maximum of 6L of oxygen of pulsed dose delivery. Due to his increased work of breathing and cyanosis, he came to the ED, where he was also noted to have a transient fever in the ED. CXR showed no acute cardiopulmonary process. COVID test was negative. CTA chest was negative for infiltrate and negative for PE. HE was started on IV ceftriaxone and azithromycin. He was admitted and managed for acute on chronic hypoxic respiratory failure in the setting of idiopathic pulmonary fibrosis. Pulmonology was consulted. Pulmonology was consulted, and recommended weaning supplental oxygen as tolerated, to 88-92% and to continue with bronchodilators. Patient's shortness of breath improved and felt better. He was discharged home on 04/25/2022 on PO azithromycin 500mg daily x 5 days. He is to follow up with his java grails developer in [place] within 1-2 weeks. Patient seen and examined prior to discharge. He felt much better and had no active complaints. Shortness of breath has improved. He denies any wheezing, chest pain, palpitations, nausea, vomiting or diarrhea. Review of systems was otherwise negative. He has remained hemodynamically stable. Labs and vitals reviewed. Home meds reviewed and reconciled. Physical Exam Const alert, oriented x3 and no apparent distress General Appearance: cooperative, comfortable and well kempt Orientation / Consciousness: awake, oriented to person and oriented to place Exam Limitations: no limitations HEENT normocephalic, head/scalp atraumatic, hearing grossly normal bilaterally and moist oral mucous membranes Mouth: oral and palatal mucosa normal Eyes PERRL, EOMs intact bilaterally and conjunctivae normal Neck no lymphadenopathy and supple Resp Resp Narrative: diminished breath sounds bibasally, mild wheezing, no crackles. On 7L of oxygen by nasal canula. GI normal to inspection, nondistended, normoactive bowel sounds, soft to palpation, non-tender and non-distended Extremity normal to inspection, full ROM and no clubbing, cyanosis or edema Skin no rashes or lesions noted and no wounds Neuro oriented x3, CN's II-XII intact bilaterally, moves all extremities and no focal motor deficits Sensorium / Orientation: awake and alert Speech: speech normal Motor Exam: strength 5/5 throughout Psych affect normal Weight / BMI Weight Weight: 236 lb 15.951 oz Body Mass Index (BMI) 38.4 ABG / Lab / Microbiology Data Result Diagrams: 04/25/22 06:25 04/25/22 06:25 Laboratory: Laboratory Results - last 24 hr 04/24/22 17:20: WBC 13.1 H, RBC 4.24 L, Hgb 13.5, Hct 41.4, MCV 97.6 H, MCH 31.8, MCHC 32.6, RDW Std Deviation 48.1 H, RDW Coeff of Remberto 13.2, Plt Count 263, MPV 9.5, Immature Gran % (Auto) 0.600, Neut % (Auto) 85.0 H, Lymph % (Auto) 7.7 L, [place] % (Auto) 4.9, Eos % (Auto) 1.5, Baso % (Auto) 0.3, Absolute Neuts (auto) 11.1 H, Absolute Lymphs (auto) 1.01, Nucleated RBC % 0 04/24/22 17:20: Sodium 138, Potassium 4.5, Chloride 104, Carbon Dioxide 29.0, Anion Gap 5, BUN 25 H, Creatinine 1.51 H, Estim Creat Clear Calc 37.09, Est GFR (MDRD) Af Amer 58 L, Est GFR (MDRD) Non-Af 48 L, BUN/Creatinine Ratio 16.6, Glucose 212 H, Calcium 9.6, Troponin I High Sens 10 04/24/22 17:20: B-Natriuretic Peptide 61.3 04/24/22 18:57: COVID-19 (MARZENA) Negative 04/24/22 20:38: Urine Color Yellow, Urine Clarity Clear, Urine pH 6.0, Ur Specific [place] 1.015, Urine Protein Negative, Urine Glucose (UA) Normal, Urine Ketones Negative, Urine Occult Blood Negative, Urine Nitrite Negative, Urine Bilirubin Negative, Urine Urobilinogen Normal, Ur Leukocyte Esterase Negative, Urine RBC 0 SEEN, Urine WBC 0 SEEN, Ur Squamous Epith Cells 0 SEEN, Urine Bacteria 0 SEEN, Urine Mucus 0 SEEN 04/24/22 23:10: MRSA (PCR) Negative 04/25/22 06:25: WBC 9.3, RBC 4.04 L, Hgb 13.4, Hct 39.3 L, MCV 97.3 H, MCH 33.2 H, MCHC 34.1, RDW Std Deviation 48.5 H, RDW Coeff of [place]ember[place] 13.4, Plt Count 232, MPV 9.4, Immature Gran % (Auto) 0.800, Neut % (Auto) 92.2 H, Lymph % (Auto) 6.3 L, [place] % (Auto) 0.6, Eos % (Auto) 0.0, Baso % (Auto) 0.1, Absolute Neuts (auto) 8.6 H, Absolute Lymphs (auto) 0.59 L, Nucleated RBC % 0, Differential Comment SCANNED 04/25/22 06:25: Sodium 136, Potassium 4.2, Chloride 106, Carbon Dioxide 23.0, Anion Gap 7, BUN 23 H, Creatinine 1.19, Estim Creat Clear Calc 45.42, Est GFR (MDRD) Af Amer 76, Est GFR (MDRD) Non-Af 63, BUN/Creatinine Ratio 19.3, Glucose 396 H, Calcium 9.3 Microbiology: Microbiology 04/24/22 18:57 Mucosa - Nose Respiratory Panel (PCR) - Final 04/24/22 20:38 Urine, Clean Catch Legionella Antigen - Final 04/24/22 20:38 Urine, Clean Catch Streptococcus pneumoniae Antigen (M - Final 04/24/22 17:45 Nasal Secretion SARS-CoV-2 Antigen (Rapid) - Final Radiography Diagnostic Testing: Radiology Impression Chest X-Ray 04/24/22 17:50 IMPRESSION: Poor inspiration with some bibasilar atelectasis per Electronically Signed: Luis Babin MD at 18:27 EDT Reading Location ID and State: [id number] / [employer] Tel , Service support , Chest CTA 04/24/22 18:45 IMPRESSION: Normal CTA chest examination, without a demonstrated pulmonary embolism or arterial dissection. Electronically Signed: Luis Babin MD at 19:51 EDT Reading Location ID and State: [id number] / [employer] Tel , Service support , D/C Instructions Discharge Diet: Low fat / Low cholesterol Weight Bearing Status: Weight bearing as tolerated Call your doctor if you observe: Fever of 101 or Higher, Shortness of breath, Dizziness and Chest pain Meaningful Use Info Meaningful Use Diagnoses (Choose all that apply): None applicable Discharge Plan Admission Admit Date/Time: 04/24/22 21:41 Primary Reason for Your Visit: exacerbation of IPF with hypoxia Attending Provider: Bella Loja Primary Care Provider: Huseyin Fuller Consulting Providers: Ervin Palacios ; Jose Puente ; Freya Dey NP ; Amor Hardy Instructions Patient Instructions: Pulmonary Fibrosis Additional Instructions / Restrictions: follow up with your java grails developer in [place] as scheduled. Use oxygen 7L for shortness of breath. Discharge Orders/Prescriptions Prescriptions: New azithromycin 500 mg tablet 500 mg PO DAILY 5 Days Qty: 5 0RF Continued aspirin 81 mg tablet,delayed release (DR/EC) 81 mg PO DAILY Label Comments: TAKE 1 TABLET BY MOUTH EVERY DAY carvedilol 3.125 mg tablet 3.125 mg PO DAILY Label Comments: TAKE 1 TABLET BY MOUTH TWICE DAILY WITH FOOD levothyroxine 150 mcg tablet 150 mcg PO DAILY Label Comments: TAKE 1 TABLET BY MOUTH DAILY nitroglycerin 0.4 mg tablet, sublingual 0.4 mg sublingual PRN PRN (Reason: Angina) Label Comments: PUT ONE TABLET BY MOUTH UNDER TONGUE NEEDED FOR CHEST PAIN furosemide 20 mg tablet 20 mg PO DAILY Label Comments: TAKE 1 TABLET BY MOUTH EVERY DAY rosuvastatin 20 mg tablet 20 mg PO DAILY Label Comments: TAKE 1 TABLET BY MOUTH EVERY DAY Referrals / Follow Up: Huseyin Fuller [Other] - Within 1 Week Huseyin Fuller [Other] Disposition Disposition (needs filled in before D/C Order can be placed): Home, Self Care Charges/Coding Visit Charges OBSV E&M: 72341 Observation care discharge
== END 2022-04-25 10:30 | disposition home or self-care (01) ==
LOC: ED 20:39 → PCU 21:50
PROVIDERS: Physician Assistant; Admitting Provider Internal Medicine; Emergency Provider Emergency Medicine; Visit Provider Student in an Organized Health Care Education/Training Program
DX: J84.112 Idiopathic pulmonary fibrosis (principal); E11.9 Type 2 diabetes mellitus without complications; R50.9 Fever, unspecified; I10 Essential (primary) hypertension; E03.9 Hypothyroidism, unspecified; Z87.891 Personal history of nicotine dependence; Z20.822 Contact with and (suspected) exposure to COVID-19; E66.9 Obesity, unspecified; R23.0 Cyanosis; Z79.82 Long term (current) use of aspirin; E78.5 Hyperlipidemia, unspecified; R06.00 Dyspnea, unspecified; Z99.81 Dependence on supplemental oxygen; Z79.899 Other long term (current) drug therapy; Z68.35 Body mass index [BMI] 35.0-35.9, adult
CPT/HCPCS: 36415; 71045; 71275; 80048; 81001; 83880; 84484; 85025; 87040; 87449; 87633; 87635; 87641; 87811; 93005; 94640; 96361; 96365; 96367; 96372; 96375; 97161; 97165; 99218; 99251; 99285; J7030; J7040; Q9967; A4216; G0378; G0463; J0696; U0003; U0005